=== PATIENT | female | born 1985 | race Caucasian/White ===

== ENCOUNTER → 2019-02-02 14:50 | Outpatient (CLI) | payer OTHER, SELFPAY ==
--- NOTE | 2019-02-02 14:55 | XR_ITS ---
PROCEDURE: XR FOOT WT BEARING LT 3V CLINICAL INDICATION: pain COMPARISON: No exams were available for comparison FINDINGS: No fracture or dislocation. No lytic or blastic change. There is normal mineralization. The joint spaces are well-preserved. No significant degenerative/arthritic changes. No erosive changes evident. Other findings:None. IMPRESSION: No acute findings. Dictated by: Solomon Boothe MD 02/02/2019 15:07 Electronically signed by Solomon Boothe MD in [place] 02/02/2019 15:07
--- NOTE | 2019-02-02 14:55 | XR_ITS ---
PROCEDURE: XR FOOT WT BEARING RT 3V CLINICAL INDICATION: pain COMPARISON: No exams were available for comparison FINDINGS: No fracture or dislocation. No lytic or blastic change. There is normal mineralization. The joint spaces are well-preserved. No significant degenerative/arthritic changes. No erosive changes evident. Other findings:None. IMPRESSION: No acute findings. Dictated by: Solomon Boothe MD 02/02/2019 15:08 Electronically signed by Solomon Boothe MD in [place] 02/02/2019 15:08
== END ==
PROVIDERS: Visit Provider Podiatrist
DX: M79.672 Pain in left foot (principal); M79.671 Pain in right foot
CPT/HCPCS: 73630